=== PATIENT | female | born 1975 | race Caucasian/White ===

== ENCOUNTER 2022-10-31 20:46 | Emergency (ER) | payer OTHER ==
[~2022-10-31] VITALS: Ht 167.6 cm; Wt 64.0 kg
[2022-10-31 20:55] VITALS: BP 128/85
[2022-10-31 21:00] VITALS: BP 126/81
[2022-10-31 21:15] VITALS: BP 129/72
[2022-10-31] MEDS ORDERED: TRAMADOL HCL50 MG PO (21:30)
[2022-10-31 21:31] VITALS: BP 124/45
[2022-10-31 21:45] VITALS: BP 121/86
== END 2022-10-31 21:53 | disposition home or self-care (01) | DRG 563 ==
LOC: ED 20:46
PROC: 2W3CXYZ Immobilization of Right Lower Arm using Other Device (ICD-10-PCS; principal; 2022-10-31)
DX: S52.601A Unspecified fracture of lower end of right ulna, initial encounter for closed fracture (principal); W18.2XXA Fall in (into) shower or empty bathtub, initial encounter

== ENCOUNTER 2023-09-06 12:27 | Emergency (ER) | payer OTHER ==
[~2023-09-06] VITALS: Ht 167.6 cm; Wt 61.2 kg
[2023-09-06] VITALS (15 sets, daily range): BP systolic 110–128; BP diastolic 79–89
[~2023-09-06 12:27] MED LIST: TRAMADOL HCL50 MG PO
[2023-09-06] MEDS ORDERED: BUPROPN HCL150 MG PO (13:36)
[2023-09-06] MEDS ORDERED: TRI-LO-SPRINTEC1 TAB (13:36)
[2023-09-06] MEDS ORDERED: LIDOCAINE W/ EPINEPHRINE 10 MG/ML INJ STI ONE (15:35)
[2023-09-06] MEDS ORDERED: IBUPROFEN 600 MG/TAB PO ONE (15:40)
== END 2023-09-06 17:28 | disposition home or self-care (01) | DRG 605 ==
LOC: ED 12:27
PROC: 0HQGXZZ Repair Left Hand Skin, External Approach (ICD-10-PCS; principal; 2023-09-06)
DX: S61.012A Laceration without foreign body of left thumb without damage to nail, initial encounter (principal); W26.0XXA Contact with knife, initial encounter; Y93.G1 Activity, food preparation and clean up